=== PATIENT | female | born 1955 | race Caucasian/White ===

== ENCOUNTER 2019-05-08 10:45 | Inpatient (IN) ==
[2019-05-08] MEDS ORDERED: SODIUM CHLORIDE 0.9% 1,000 ML IV STA (11:36)
[2019-05-08 12:24] LABS: INR 1.2; PT Patient Result 12.5 SECS (9.6-12.2); Partial Thromboplastin Time 27.2 SECS (20.8-36.0)
[2019-05-08 12:33] LABS: Bilirubin,Total 0.5 MG/DL (0.2-1.0); Osmolality,Calculated 267.5 MOS/KG (273-304); Total Protein 7.4 G/DL (6.4-8.3)
[2019-05-08 12:35] LABS: Troponin I 0.143 NG/ML (0.00-0.045)
[2019-05-08 12:40] LABS: Basophils # 0.1 10*3/uL (0.0-0.2); Basophils % 1.3 % (0.0-0.8); Eosinophils # 0.1 10*3/uL (0.0-0.87); Eosinophils % 1.2 % (0.00-10.9); Hematocrit 31.2 VOL% (35.7-47.0); Hemoglobin 7.7 GM/DL (12.0-16.0); Immature Granulocytes % 0.7 %; Immature Granulocytes Absolute 0.07 #; Lymphocytes # 1.8 10*3/uL (1.4-4.0); Lymphocytes % 17.7 % (21.3-54.2); Mean Corpuscular HGB Conc 24.7 GM/DL (32-36); Mean Corpuscular Volume 66.8 FL (87-102); Mean Platelet Volume 8.6 FL (9.6-12.0); Monocytes % 8.3 % (1.7-12.7); NRBC # 0.53 10*3/uL; Neutrophils % 70.8 % (38.7-73.9); Platelet Count 427 T/CUMM (130-400); Red Blood Count 4.67 MC/CUMM (3.8-5.5); Red Cell Distribution Width 22.7 % (9.3-17.3); White Blood Count 10.4 T/CUMM (4-12)
[2019-05-08] MEDS ORDERED: ONDANSETRON 4 MG/2 ML VIAL IV STA (12:40)
[2019-05-08 12:41] LABS: Free T4 (Free Thyroxine) 0.89 NG/DL (0.76-1.46)
[2019-05-08 12:42] LABS: Platelet Estimate Normal
[2019-05-08 12:43] LABS: Anisocytosis 3+; Apearance,Urine CLEAR (Clear); Bilirubin,Urine Negative (Negative); Blood, Urine Negative (Negative); Glucose,Urine (UA) Negative (Negative); Hyaline Casts,Urine 1 /LPF (0-3); Ketones,Urine Negative (Negative); Nitrite,Urine Negative (Negative); Polychromasia 2+; Protein,Urine 100 MG/DL; RBC,Urine <1 /HPF (0-4); Urine Color Yellow (Yellow); Urine Specific Gravity 1.025 (1.001-1.035); WBC,Urine <1 /HPF (0-6)
[2019-05-08 12:44] LABS: Hypochromasia 1+
[2019-05-08 12:51] LABS: Barbiturates Screen,Urine Negative (Negative); Benzodiazepines Screen,Urine Positive (Negative); Cannabinoid Screen,Urine Negative (Negative); Opiate Screen,Urine Negative (Negative); Phencyclidine Screen,Urine Negative (Negative)
[2019-05-08] MEDS ORDERED: guaiFENesin/DM ER 600-30 MG TABLET PO PRN (14:11)
[2019-05-08] MEDS ORDERED: ALBUTEROL/IPRATROPIUM 3 ML NEB RESP TX STA (14:11)
[2019-05-08] MEDS ORDERED: methylPREDNISolone SOD SUC 125 MG/2 ML VIAL IV STA (14:11)
[2019-05-08] MEDS ORDERED: MORPHINE 4 MG/1 ML VIAL IV PRN (14:11)
[2019-05-08] MEDS ORDERED: LORazepam 2 MG/1 ML VIAL IV PRN (14:11)
[2019-05-08] MEDS ORDERED: BISACODYL 5 MG TABLET PO PRN (14:11)
[2019-05-08] MEDS ORDERED: DEXTROSE 10% 25 GM/250 ML BAG IV PRN (14:11)
[2019-05-08] MEDS ORDERED: ONDANSETRON 4 MG/2 ML VIAL IV PRN (14:11)
[2019-05-08] MEDS ORDERED: GLUCAGON 1 MG VIAL IM PRN (14:11)
[2019-05-08] MEDS ORDERED: SODIUM CHLORIDE 0.9% 1,000 ML IV PRN ×2 (14:17)
[2019-05-08] MEDS ORDERED: MAGNESIUM SULF RIDER 4 GM in PREMIX 1 EACH IV PRN (14:24)
[2019-05-08] MEDS ORDERED: MAGNESIUM SULF RIDER 2 GM in PREMIX 1 EACH IV PRN (14:24)
[2019-05-08] MEDS ORDERED: methylPREDNISolone SOD SUC 125 MG/2 ML VIAL ONE (14:30)
[2019-05-08] MEDS ORDERED: SODIUM CHLORIDE 0.9% 1,000 ML IV SCH (14:30)
[2019-05-08 14:41] LABS: % Iron Saturation 2.4 % (18-50); Ferritin 5.2 ng/ml (8-252)
[2019-05-08] MEDS ORDERED: LORazepam 2 MG/1 ML VIAL ONE (15:26)
[2019-05-08 15:29] LABS: Troponin I 0.195 NG/ML (0.00-0.045)
[2019-05-08 16:12] LABS: Folate 18.2 NG/ML (5.4-24.0); Hepatitis B Core IgM Quant 0.05 Index; Hepatitis B Surface Ag Quant < 0.10 Index; Hepatitis B Surface Ag Result Negative (Negative); Hepatitis C Virus Ab Quant > 11.00 Index; Hepatitis C Virus Ab Result Positive (Negative); Vitamin B12 934 PG/ML (211-911)
[2019-05-08 17:50] LABS: Troponin I 0.153 NG/ML (0.00-0.045)
[2019-05-08] MEDS: INSULIN LISPRO 100 UNIT/ML SUBCUT SCH ×2 (17:57→21:02)
[2019-05-08] MEDS: AZITHROMYCIN INJ 500 MG in SODIUM CHLORIDE 0.9% 250 ML IV SCH (18:18)
[2019-05-08] MEDS: cefTRIAXone 1,000 MG in SYRINGE 1 EACH IV SCH (18:18)
[2019-05-08] MEDS: ENOXAPARIN 40 MG/0.4 ML SYRINGE SUBCUT SCH (18:18)
[2019-05-08] MEDS ORDERED: INFLUENZA VIRUS VACCINE 0.5 ML SYRINGE IM ONE (18:43)
[2019-05-08] MEDS: ALBUTEROL/IPRATROPIUM 3 ML NEB RESP TX SCH (19:17)
[2019-05-08] MEDS: THIAMINE INJ 100 MG, FOLIC ACID INJ 1 MG, MULTIVITAMIN INJ 10 ML in SODIUM CHLORIDE 0.9... IV SCH (20:21)
[2019-05-08] MEDS: methylPREDNISolone SOD SUC 40 MG/1 ML VIAL IV SCH (22:22)
[2019-05-08] MEDS: MONTELUKAST 10 MG TABLET PO SCH (22:25)
[2019-05-08] MEDS: DOCUSATE SODIUM 100 MG CAPSULE PO SCH (22:26)
[2019-05-09] MEDS: ALBUTEROL/IPRATROPIUM 3 ML NEB RESP TX SCH ×4 (00:05→19:31)
[2019-05-09 03:01] LABS: Hematocrit 48.8 VOL% (35.7-47.0); Hemoglobin 12.2 GM/DL (12.0-16.0)
[2019-05-09] MEDS: methylPREDNISolone SOD SUC 40 MG/1 ML VIAL IV SCH ×3 (05:57→23:30)
[2019-05-09 06:51] LABS: Basophils % 0.1 % (0.0-0.8); Eosinophils % 0.2 % (0.00-10.9); Hematocrit 46.2 VOL% (35.7-47.0); Immature Granulocytes % 1.3 %; Immature Granulocytes Absolute 0.11 #; Lymphocytes # 0.3 10*3/uL (1.4-4.0); Lymphocytes % 3.2 % (21.3-54.2); Mean Platelet Volume 8.8 FL (9.6-12.0); NRBC # 0.54 10*3/uL; Neutrophils % 94.2 % (38.7-73.9); Platelet Count 402 T/CUMM (130-400); Red Blood Count 6.51 MC/CUMM (3.8-5.5); Red Cell Distribution Width 24.1 % (9.3-17.3); White Blood Count 8.2 T/CUMM (4-12)
[2019-05-09 06:58] LABS: Eosinophils 1 % (0-10); Lymphocytes 2 % (20-55); Nucleated Red Blood Cells 9 (0-5); Segmented Neutrophils 94 % (50-85); Total Cells Counted 100
[2019-05-09 06:59] LABS: Hypochromasia 2+; Polychromasia Slight
[2019-05-09 07:00] LABS: Microcytosis 2+; Target Cells Slight
[2019-05-09 07:13] LABS: Albumin 2.7 G/DL (3.4-5.0); Bilirubin,Total 0.9 MG/DL (0.2-1.0); Calcium 8.5 MG/DL (8.5-10.1); Osmolality,Calculated 268.8 MOS/KG (273-304); Total Protein 7.8 G/DL (6.4-8.3)
[2019-05-09] MEDS ORDERED: oxyCODONE/ACETAMINOPHEN 5-325 MG TABLET PO PRN (08:54)
[2019-05-09] MEDS ORDERED: CLORAZEPATE 3.75 MG TABLET PO SCH (09:00)
[2019-05-09] MEDS: PANTOPRAZOLE 40 MG TABLET PO SCH (09:06)
[2019-05-09] MEDS: DOCUSATE SODIUM 100 MG CAPSULE PO SCH ×2 (09:06→23:31)
[2019-05-09] MEDS: NICOTINE 21 MG/24 HR PATCH TRANSDERM PRN (09:10)
[2019-05-09] MEDS: INSULIN LISPRO 100 UNIT/ML SUBCUT SCH ×4 (09:12→23:39)
[2019-05-09] MEDS: chlordiazePOXIDE 10 MG CAPSULE PO SCH ×3 (10:34→23:31)
[2019-05-09] MEDS: IRON SUCROSE 200 MG in SODIUM CHLORIDE 0.9% 100 ML IV SCH (12:37)
[2019-05-09] MEDS: LORazepam 2 MG/1 ML VIAL IV PRN (13:30)
[2019-05-09] MEDS ORDERED: MAGNESIUM SULF RIDER 2 GM in PREMIX 1 EACH IV ONE (13:34)
[2019-05-09] MEDS: LIDOCAINE 5% PATCH TRANSDERM SCH ×2 (16:45→18:42)
[2019-05-09] MEDS: METOPROLOL TARTRATE 25 MG TABLET PO SCH ×2 (16:46→23:31)
[2019-05-09] MEDS: cefTRIAXone 1,000 MG in SYRINGE 1 EACH IV SCH (16:46)
[2019-05-09] MEDS: AZITHROMYCIN INJ 500 MG in SODIUM CHLORIDE 0.9% 250 ML IV SCH (16:49)
[2019-05-09] MEDS: ENOXAPARIN 40 MG/0.4 ML SYRINGE SUBCUT SCH (18:15)
[2019-05-09] MEDS: THIAMINE INJ 100 MG, FOLIC ACID INJ 1 MG, MULTIVITAMIN INJ 10 ML in SODIUM CHLORIDE 0.9... IV SCH (18:16)
[2019-05-09] MEDS: MONTELUKAST 10 MG TABLET PO SCH (23:31)
[2019-05-10] MEDS: ALBUTEROL/IPRATROPIUM 3 ML NEB RESP TX SCH ×3 (01:08→19:01)
[2019-05-10 05:18] LABS: Basophils % 0.1 % (0.0-0.8); Hematocrit 40.6 VOL% (35.7-47.0); Immature Granulocytes % 2.2 %; Lymphocytes # 0.5 10*3/uL (1.4-4.0); Mean Corpuscular HGB Conc 25.6 GM/DL (32-36); Mean Corpuscular Volume 71.7 FL (87-102); Mean Platelet Volume 9.6 FL (9.6-12.0); Monocytes % 3.7 % (1.7-12.7); NRBC # 1.87 10*3/uL; Platelet Count 353 T/CUMM (130-400); Red Blood Count 5.66 MC/CUMM (3.8-5.5); Red Cell Distribution Width 24.4 % (9.3-17.3); White Blood Count 22.8 T/CUMM (4-12)
[2019-05-10 05:35] LABS: Calcium 8.1 MG/DL (8.5-10.1)
[2019-05-10 05:47] LABS: Hemoglobin 10.6 GM/DL (12.0-16.0)
[2019-05-10] MEDS: methylPREDNISolone SOD SUC 40 MG/1 ML VIAL IV SCH (06:02)
[2019-05-10 06:12] LABS: Band Neutrophils 2 % (0-10); Hypochromasia 2+; Lymphocytes 4 % (20-55); Microcytosis 1+; Nucleated Red Blood Cells 7 (0-5); Segmented Neutrophils 93 % (50-85); Total Cells Counted 100
[2019-05-10 06:13] LABS: Polychromasia Slight; Target Cells Slight
[2019-05-10 06:14] LABS: Anisocytosis 1+; Platelet Estimate Normal; Spherocytes Slight
[2019-05-10] MEDS ORDERED: chlordiazePOXIDE 10 MG CAPSULE PO SCH (07:18)
[2019-05-10] MEDS ORDERED: ASPIRIN EC 81 MG TABLET PO SCH (09:00)
[2019-05-10] MEDS ORDERED: methylPREDNISolone SOD SUC 40 MG/1 ML VIAL IV SCH (09:00)
[2019-05-10] MEDS: METOPROLOL TARTRATE 25 MG TABLET PO SCH ×2 (10:04→20:48)
[2019-05-10] MEDS: LIDOCAINE 5% PATCH TRANSDERM SCH (10:04)
[2019-05-10] MEDS: PANTOPRAZOLE 40 MG TABLET PO SCH (10:05)
[2019-05-10] MEDS: DOCUSATE SODIUM 100 MG CAPSULE PO SCH ×2 (10:05→20:48)
[2019-05-10] MEDS: INSULIN LISPRO 100 UNIT/ML SUBCUT SCH ×3 (10:06→18:38)
[2019-05-10] MEDS: IRON SUCROSE 200 MG in SODIUM CHLORIDE 0.9% 100 ML IV SCH (10:11)
[2019-05-10 10:56] LABS: Alanine Aminotransferase 428 U/L (13-56); Albumin 2.7 G/DL (3.4-5.0); Alkaline Phosphatase 115 U/L (45-117); Aspartate Amino Transferase 194 U/L (0-37); Bilirubin,Indirect 0.3 MG/DL (0.0-1.0); Bilirubin,Total < 0.39 MG/DL (0.2-1.0); Total Protein 7.3 G/DL (6.4-8.3)
[2019-05-10] MEDS ORDERED: DEXTROSE 50% 25 GM/50 ML VIAL IV PRN (11:59)
[2019-05-10] MEDS ORDERED: GLUCAGON 1 MG VIAL IM PRN (11:59)
[2019-05-10 16:00] LABS: HIV Antigen/Antibody Result Nonreactive (Nonreactive)
[2019-05-10] MEDS: THIAMINE INJ 100 MG, FOLIC ACID INJ 1 MG, MULTIVITAMIN INJ 10 ML in SODIUM CHLORIDE 0.9... IV SCH (18:31)
[2019-05-10] MEDS: ENOXAPARIN 40 MG/0.4 ML SYRINGE SUBCUT SCH (18:31)
[2019-05-10] MEDS: predniSONE 20 MG TABLET PO SCH (18:31)
[2019-05-10] MEDS: MONTELUKAST 10 MG TABLET PO SCH (20:48)
[2019-05-10] MEDS: LORazepam 2 MG/1 ML VIAL IV PRN (23:03)
[2019-05-11] MEDS: ALBUTEROL/IPRATROPIUM 3 ML NEB RESP TX SCH ×2 (00:49→07:13)
[2019-05-11] MEDS ORDERED: LORazepam 2 MG/1 ML VIAL IV PRN ×2 (02:51→02:53)
[2019-05-11 05:36] LABS: Basophils % 0.2 % (0.0-0.8); Immature Granulocytes % 3.6 %; Immature Granulocytes Absolute 0.94 #; Lymphocytes # 1.9 10*3/uL (1.4-4.0); Lymphocytes % 7.2 % (21.3-54.2); Mean Corpuscular HGB Conc 24.9 GM/DL (32-36); Mean Corpuscular Volume 75.1 FL (87-102); Mean Platelet Volume 8.4 FL (9.6-12.0); Monocytes % 6.8 % (1.7-12.7); NRBC # 2.28 10*3/uL; Neutrophils % 82.2 % (38.7-73.9); Platelet Count 237 T/CUMM (130-400); Red Blood Count 5.55 MC/CUMM (3.8-5.5); Red Cell Distribution Width 25.5 % (9.3-17.3); White Blood Count 26.2 T/CUMM (4-12)
[2019-05-11 05:50] LABS: Albumin 2.5 G/DL (3.4-5.0); Bilirubin,Direct 0.12 MG/DL (0.0-0.20); Bilirubin,Indirect 0.3 MG/DL (0.0-1.0); Bilirubin,Total 0.4 MG/DL (0.2-1.0); Total Protein 6.3 G/DL (6.4-8.3)
[2019-05-11 06:25] LABS: Hematocrit 41.5 VOL% (35.7-47.0); Hemoglobin 10.4 GM/DL (12.0-16.0)
[2019-05-11 06:30] LABS: Lymphocytes 5 % (20-55); Microcytosis 2+; Nucleated Red Blood Cells 9 (0-5); Platelet Estimate Normal; Polychromasia 1+; Segmented Neutrophils 90 % (50-85); Total Cells Counted 100
[2019-05-11 06:31] LABS: Hypochromasia 3+; Stomatocytes Slight; Target Cells Few
[2019-05-11] MEDS ORDERED: AZITHROMYCIN 250 MG TABLET PO SCH (09:00)
[2019-05-11] MEDS: NICOTINE 21 MG/24 HR PATCH TRANSDERM PRN (09:49)
[2019-05-11] MEDS: LIDOCAINE 5% PATCH TRANSDERM SCH (09:49)
[2019-05-11] MEDS: predniSONE 20 MG TABLET PO SCH (09:49)
[2019-05-11] MEDS: METOPROLOL TARTRATE 25 MG TABLET PO SCH (09:50)
[2019-05-11] MEDS: PANTOPRAZOLE 40 MG TABLET PO SCH (09:50)
[2019-05-11] MEDS: DOCUSATE SODIUM 100 MG CAPSULE PO SCH (09:50)
[2019-05-11] MEDS: IRON SUCROSE 200 MG in SODIUM CHLORIDE 0.9% 100 ML IV SCH (09:50)
[2019-05-11 10:39] VITALS: BP 127/80
== END 2019-05-11 10:33 | disposition home or self-care (01) | DRG 190 ==
LOC: N.ED 10:45 → N.EDINP 14:11 → SUATTDRO 14:11 → N.EDINP 15:35 → N.5E 16:30
PROVIDERS: ADMIT Internal Medicine; ATTEND Family Medicine